=== PATIENT | female | born 1975 | race Two or more races ===

== ENCOUNTER 2016-07-17 10:57 | Outpatient (CLI) | payer OTHER | END 2016-07-17 10:58 | disposition home or self-care (01) | DX: G47.33 Obstructive sleep apnea (adult) (pediatric) (principal) ==

== ENCOUNTER 2016-08-08 07:13 | Outpatient (CLI) | payer OTHER | END 2016-08-08 07:14 | disposition home or self-care (01) | DX: R10.9 Unspecified abdominal pain (principal); R31.29 Other microscopic hematuria ==

== ENCOUNTER 2016-09-04 09:19 | Outpatient (CLI) | payer OTHER ==
--- NOTE | 2016-09-04 17:33 | Ultrasound Report ---
RETROPERITONEAL ULTRASOUND: 09/04/2016 CLINICAL HISTORY: A 41-year-old female with microscopic hematuria. TECHNIQUE: Real-time sonographic vascular imaging was performed by the reeling and tubing machine operator through the kidney s utilizing both color-flow and Doppler spectral analysis. Multiple personnel representative static images wer e saved for review. FINDINGS: The right kidney measures 11.1 cm in length. No pyelocaliceal system distention is seen. N o mass is noted. The left kidney measures 11.1 cm in length. No pyelocaliceal system distention is seen. No mass is no avani. The bladder volume on prevoid is 343.5 cubic centimeters. Bladder volume on postvoid is 8.4 cubic ciara timeters. Normal bilateral ureteral jets are seen in the bladder. IMPRESSION: NORMAL EXAMINATION. JOB #: [id number] EXT JOB #:[id number]
== END 2016-09-04 09:20 | disposition home or self-care (01) ==
LOC: DI 09:19
PROVIDERS: ATTEND Physician Assistant Medical
DX: R10.9 Unspecified abdominal pain (principal)
CPT/HCPCS: 76770

== ENCOUNTER 2016-09-18 08:16 | Outpatient (CLI) | payer OTHER ==
--- NOTE | 2016-09-18 14:10 | Ultrasound Report ---
COMPLETE ABDOMINAL ULTRASOUND: 09/18/2016 CLINICAL INDICATION: Flank pain, dyspepsia, hematuria. COMPARISON: Renal ultrasound of 09/04/2016. TECHNIQUE: Real-time scanning was performed with auto service representative static images obtained. FINDINGS: The liver measures 19 cm. Hepatic echogenicity is diffusely increased, compatible with fat ty infiltration. No focal parenchymal lesion or intrahepatic biliary dilatation is seen. The common b ile duct measures 4 mm. The gallbladder is surgically absent. The visualized pancreas is unremarkable , but portions are obscured by bowel gas. The spleen measures 7.4 cm, and appears unremarkable. The k idneys are normal, with the right measuring 11.5 cm and the left measuring 11.8 cm. The abdominal aor ta is normal in caliber. The inferior vena cava appears unremarkable. No free fluid is present. IMPRESSION: CHANGES OF CHOLECYSTECTOMY. FATTY INFILTRATION OF THE LIVER. JOB #: [id number] EXT JOB #:[id number]
== END 2016-09-18 08:17 | disposition home or self-care (01) ==
LOC: DI 08:16
PROVIDERS: ATTEND Physician Assistant Medical
DX: K76.0 Fatty (change of) liver, not elsewhere classified (principal); Z90.49 Acquired absence of other specified parts of digestive tract
CPT/HCPCS: 76700

== ENCOUNTER 2017-01-16 12:55 | Emergency (ER) | payer OTHER ==
[2017-01-16 13:04] VITALS: BP 140/91
--- NOTE | 2017-01-16 13:36 | ED Physician Documentation ---
PD HPI UPPER EXT INJURY - Stated complaint Stated Complaint: R POINTY FIN LAC - Chief complaint Chief Complaint: Ext Problem - History obtained from History obtained from: Patient - History of Present Illness Location: Other (She works in central [employer], she cut her right index finger on a pair of suture scissors today. She thinks her tetanus is up-to-date. The scissors had been pretty clean but not sterilized, they were not grossly bloody. ) Review of Systems Constitutional: reports: Reviewed and negative Cardiac: reports: Reviewed and negative Respiratory: reports: Reviewed and negative PD PAST MEDICAL HISTORY - Present Medications Home Medications: Ambulatory Orders Medication Instructions Recorded Confirmed Cetirizine [ZyrTEC] 10 mg PO DAILY 01/16/17 01/16/17 Montelukast Sodium 10 mg PO DAILY 01/16/17 01/16/17 - Allergies Allergies/Adverse Reactions: Allergies Allergy/AdvReac Type Severity Reaction Status Date / Time No Known Drug Allergies Allergy Verified 01/16/17 13:04 PD ED PE NORMAL - Vitals Vital signs reviewed: Yes - General General: Alert and oriented X 3, No acute distress - Extremities Extremities: Other (Shallow laceration on the tip of the right index finger, not through the dermis, just in the skin.) - Neuro Neuro: Alert and oriented X 3, Normal speech - Psych Psych: Normal mood, Normal affect Results - Vitals Vitals: Vital Signs - 24 hr 01/16/17 13:01 Temperature 36.7 C Heart Rate 100 Respiratory 18 Rate Blood Pressure 140/91 H O2 Saturation 100 Oxygen O2 Source Room air PD MEDICAL DECISION MAKING - ED course ED course: We discussed HIV prophylaxis, but her risk is very low and she declined. Departure - Departure Disposition: 01 Home, Self Care Clinical Impression: Employee exposure to body fluids Finger laceration Qualifiers: Encounter type: initial encounter Finger: index finger Damage to nail status: without damage Foreign body presence: without foreign body Laterality: right Qualified Code(s): S61.210A - Laceration without foreign body of right index finger without damage to nail, initial encounter Condition: Good Record reviewed to determine appropriate education?: Yes Instructions: ED Body Fluid Exp HC Worker Comments: Follow-up with your physician in 2 months and 6 months for repeat HIV and hepatitis testing. Your blood pressure was elevated today on check into the emergency department. This does not mean that you have hypertension, it is a common phenomenon to come to the emergency department and have elevated blood pressure. I recommend that she see your primary care physician within the week to have it rechecked when you are feeling better. Discharge Date/Time: 01/16/17 13:35
== END 2017-01-16 14:27 | disposition home or self-care (01) ==
LOC: ED 12:55
DX: S61.210A Laceration without foreign body of right index finger without damage to nail, initial encounter (principal); W45.8XXA Other foreign body or object entering through skin, initial encounter; Y93.89 Activity, other specified; Y99.0 Civilian activity done for income or pay; R03.0 Elevated blood-pressure reading, without diagnosis of hypertension; Z77.21 Contact with and (suspected) exposure to potentially hazardous body fluids
CPT/HCPCS: 80074; 87389; 99282; 99283

== ENCOUNTER 2017-04-12 11:53 | Outpatient (CLI) | payer OTHER ==
[2017-04-12 13:28] LABS: ALBUMIN 3.9 g/dL (3.2-5.5); ALBUMIN/GLOBULIN RATIO 1.1 (1.0-2.2); ALKALINE PHOSPHATASE 55 IU/L (42-121); ALT ALANINE AMINOTRANSFERASE 34 IU/L (10-60); AST ASPARTATE AMINOTRANSFERASE 27 IU/L (10-42); BILIRUBIN,TOTAL 0.6 mg/dL (0.2-1.0); BUN - BLOOD UREA NITROGEN 10 mg/dL (6-20); CALCIUM 8.7 mg/dL (8.5-10.3); CARBON DIOXIDE - CO2 24 mmol/L (21-32); CHLORIDE 105 mmol/L (101-111); CHOL/HDL RATIO 3.3 (<4.4); CHOLESTEROL 143 mg/dL; CREATININE 0.5 mg/dL (0.4-1.0); GFR - MDRD 135 (>89); GLUCOSE 86 mg/dL (70-100); HDL CHOLESTEROL 44 mg/dL; LDL CHOLESTEROL,CALCULATED 79 mg/dL; LDL/HDL RATIO 1.8 (<4.4); SODIUM 137 mmol/L (135-145); TOTAL PROTEIN 7.3 g/dL (6.7-8.2); VLDL CHOLESTEROL 20 mg/dL
[2017-04-12 13:29] LABS: HB2 TOTAL 13.1 g/dL; HEMOGLOBIN A1C 0.56 g/dL; HEMOGLOBIN A1C % 6.1 % (4.6-6.2)
[2017-04-12 13:30] LABS: BASOPHILS # (AUTO) 0.1 10^3/uL (0.0-0.1); BASOPHILS % (AUTO) 0.9 %; EOSINOPHILS # (AUTO) 0.3 10^3/uL (0.0-0.7); EOSINOPHILS % (AUTO) 2.6 %; HGB - HEMOGLOBIN 12.3 g/dL (12.0-16.0); LYMPHOCYTES # (AUTO) 2.7 10^3/uL (1.5-3.5); LYMPHOCYTES % (AUTO) 23.3 %; MEAN CORPUSCULAR HEMOGLOBIN 26.4 pg (27.0-31.0); MEAN PLATELET VOLUME 7.8 fL (7.9-10.8); MONOCYTES # (AUTO) 0.7 10^3/uL (0.0-1.0); MONOCYTES % (AUTO) 5.7 %; NEUTROPHILS # (AUTO) 7.7 10^3/uL (1.5-6.6); NEUTROPHILS % (AUTO) 67.5 %; PLT - PLATELET COUNT 260 10^3/uL (130-450); RED BLOOD COUNT 4.65 10^6/uL (4.20-5.40); RED CELL DISTRIBUTION WIDTH 15.2 % (12.0-15.0); WHITE BLOOD COUNT 11.4 x10^3/uL (4.8-10.8)
== END 2017-04-12 11:54 | disposition home or self-care (01) ==
LOC: LAB 11:53
PROVIDERS: ATTEND Physician Assistant Medical
DX: Z00.00 Encounter for general adult medical examination without abnormal findings (principal); E55.9 Vitamin D deficiency, unspecified
CPT/HCPCS: 80053; 80061; 82306; 83036; 84443; 85025

== ENCOUNTER 2017-11-05 08:54 | Outpatient (CLI) | payer OTHER | END 2017-11-05 08:55 | disposition home or self-care (01) | LOC: SC 08:54 | PROVIDERS: ATTEND Nurse Practitioner Family | DX: G47.33 Obstructive sleep apnea (adult) (pediatric) (principal) | CPT/HCPCS: 99212; 99214 ==

== ENCOUNTER 2018-12-30 15:45 | Outpatient (CLI) | payer BC, OTHER ==
[2018-12-30 16:25] LABS: BASOPHILS # (AUTO) 0.1 10^3/uL (0.0-0.1); BASOPHILS % (AUTO) 0.7 %; EOSINOPHILS # (AUTO) 0.4 10^3/uL (0.0-0.7); EOSINOPHILS % (AUTO) 3.2 %; HGB - HEMOGLOBIN 10.6 g/dL (12.0-16.0); LYMPHOCYTES # (AUTO) 2.9 10^3/uL (1.5-3.5); LYMPHOCYTES % (AUTO) 26.3 %; MEAN CORPUSCULAR HGB CONC 31.7 g/dL (32.0-36.0); MEAN PLATELET VOLUME 9.5 fL (7.9-10.8); MONOCYTES # (AUTO) 0.7 10^3/uL (0.0-1.0); MONOCYTES % (AUTO) 6.6 %; NEUTROPHILS # (AUTO) 6.9 10^3/uL (1.5-6.6); NEUTROPHILS % (AUTO) 62.4 %; PLT - PLATELET COUNT 245 10^3/uL (130-450); RED BLOOD COUNT 3.93 10^6/uL (4.20-5.40); RED CELL DISTRIBUTION WIDTH 13.8 % (12.0-15.0)
[2018-12-30 17:46] LABS: THYROID STIMULATING HORMONE 1.27 uIU/mL (0.34-5.60)
[2018-12-30 17:52] LABS: PROLACTIN 11.72 ng/mL
[2018-12-30 18:14] LABS: FOLLICLE STIMULATING HORMONE 7.53 mIU/mL; LUTEINIZING HORMONE 1.51 mIU/mL
[2018-12-31 06:46] LABS: ESTRADIOL 21 pg/mL
[2019-01-01 10:46] LABS: DHEA SULFATE 177 mcg/dL (19-231)
[2019-01-04 15:11] LABS: 17-HYDROXYPREGNENOLONE 38 ng/dL
== END 2018-12-30 15:46 | disposition home or self-care (01) ==
LOC: LAB 15:45
PROVIDERS: ATTEND Obstetrics & Gynecology
DX: N93.9 Abnormal uterine and vaginal bleeding, unspecified (principal)
CPT/HCPCS: 36415; 81599; 82627; 82670; 83001; 83002; 84143; 84146; 84270; 84402; 84403; 84443; 85025

== ENCOUNTER 2019-01-02 14:47 | Outpatient (CLI) | payer BC ==
--- NOTE | 2019-01-04 13:21 | Ultrasound Report ---
Reason: ABN UTERINE BLEEDING Procedure Date: 01/02/2019 Accession Number: [id number] / [id number] Procedure: US - Pelvic w/Transvaginal CPT Code: FULL RESULT: EXAM: PELVIC ULTRASOUND EXAM DATE: 01/02/2019 04:54 PM. CLINICAL HISTORY: Abnormal uterine bleeding. COMPARISON: None. TECHNIQUE: Realtime transabdominal pelvic scan performed to identify the uterus and adnexa and as an overview of other pelvic structures, followed by transvaginal scan to provide greater detail of the uterus and adnexa, with static image documentation. FINDINGS: Uterus: 10.3 x 7.2 x 7.6 cm, volume 295 cc. Anteverted position. Heterogeneous fibroid uterus is seen. Masses: Multiple uterine masses as below: 1. Lower uterine segment posteriorly, intramural, 1.0 cm. 2. Right posterior, intramural, 3.8 x 4.1 x 4.0 cm. 3. Lower uterine segment anteriorly, intramural, 0.9 cm. Endometrium: 4 mm. Normal. Cervix: Small nabothian cysts are seen, otherwise unremarkable. Right Ovary: 1.5 x 2.5 x 2.1 cm, volume 4 cc. Normal echotexture and blood flow. Left Ovary: 2.8 x 1.5 x 2.9 cm, volume 7 cc. Normal echotexture and blood flow. Free Fluid: None. Other: None. IMPRESSION: 1. Enlarged heterogeneous fibroid uterus with several intramural fibroids seen, largest measuring up to 4.1 cm. No submucosal fibroid is definitively visualized. 2. Normal thickness endometrium. No endometrial mass or vascular abnormality is identified. 3. Normal ovaries. RADIA
== END 2019-01-02 14:48 | disposition home or self-care (01) ==
LOC: DI 14:47
PROVIDERS: ATTEND Obstetrics & Gynecology
DX: D25.1 Intramural leiomyoma of uterus (principal); N93.9 Abnormal uterine and vaginal bleeding, unspecified
CPT/HCPCS: 76830; 76856

== ENCOUNTER 2019-04-22 09:56 | Outpatient (CLI) | payer BC ==
[2019-04-22 10:58] LABS: ALBUMIN 4.2 g/dL (3.2-5.5); ALBUMIN/GLOBULIN RATIO 1.1 (1.0-2.2); BILIRUBIN,TOTAL 0.7 mg/dL (0.2-1.0); CALCIUM 8.9 mg/dL (8.5-10.3); CREATININE 0.6 mg/dL (0.4-1.0); TOTAL PROTEIN 8.1 g/dL (6.7-8.2)
[2019-04-22 11:02] LABS: HB2 TOTAL 13.9 g/dL; HEMOGLOBIN A1C 0.91 g/dL; HEMOGLOBIN A1C % 8.1 % (4.6-6.2)
== END 2019-04-22 09:57 | disposition home or self-care (01) ==
LOC: LAB 09:56
PROVIDERS: ATTEND Obstetrics & Gynecology
DX: K76.0 Fatty (change of) liver, not elsewhere classified (principal); L83 Acanthosis nigricans; R73.02 Impaired glucose tolerance (oral); E66.9 Obesity, unspecified
CPT/HCPCS: 36415; 80053; 82950; 82951; 83036

== ENCOUNTER 2019-05-06 14:10 | Outpatient (CLI) | payer BC ==
[2019-05-06 14:48] LABS: BASOPHILS # (AUTO) 0.1 10^3/uL (0.0-0.1); BASOPHILS % (AUTO) 0.8 %; EOSINOPHILS # (AUTO) 0.3 10^3/uL (0.0-0.7); EOSINOPHILS % (AUTO) 3.2 %; HGB - HEMOGLOBIN 13.5 g/dL (12.0-16.0); LYMPHOCYTES # (AUTO) 2.5 10^3/uL (1.5-3.5); MEAN CORPUSCULAR HEMOGLOBIN 28.3 pg (27.0-31.0); MEAN CORPUSCULAR HGB CONC 32.8 g/dL (32.0-36.0); MEAN CORPUSCULAR VOLUME 86.4 fL (81.0-99.0); MEAN PLATELET VOLUME 9.5 fL (7.9-10.8); MONOCYTES # (AUTO) 0.7 10^3/uL (0.0-1.0); MONOCYTES % (AUTO) 6.7 %; NEUTROPHILS # (AUTO) 6.1 10^3/uL (1.5-6.6); NEUTROPHILS % (AUTO) 62.8 %; PLT - PLATELET COUNT 276 10^3/uL (130-450); RED BLOOD COUNT 4.77 10^6/uL (4.20-5.40); RED CELL DISTRIBUTION WIDTH 13.8 % (12.0-15.0); WHITE BLOOD COUNT 9.8 x10^3/uL (4.8-10.8)
[2019-05-06 14:54] LABS: BILIRUBIN,URINE NEGATIVE (NEGATIVE); GLUCOSE, URINE (UA) NEGATIVE (NEGATIVE); KETONES,URINE (UA) NEGATIVE (NEGATIVE); LEUKOCYTE ESTERASE, URINE NEGATIVE (NEGATIVE); NITRITE,URINE NEGATIVE (NEGATIVE); OCCULT BLOOD,URINE LARGE (NEGATIVE); PH,URINE 5.5 PH (5.0-7.5); PROTEIN,URINE NEGATIVE (NEGATIVE); UROBILINOGEN,URINE 0.2 (NORMAL) E.U./dL (NORMAL)
[2019-05-06 15:02] LABS: BACTERIA,URINE None Seen /HPF (None Seen); CLARITY,URINE HAZY (CLEAR); RBC,URINE TNTC /HPF (0-5); SQUAMOUS EPITHELIAL CELL,UR RARE Squamous (<= Few)
[2019-05-06 18:09] LABS: ALBUMIN/GLOBULIN RATIO 1.2 (1.0-2.2); BILIRUBIN,TOTAL 0.5 mg/dL (0.2-1.0); CALCIUM 9.3 mg/dL (8.5-10.3); CREATININE 0.6 mg/dL (0.4-1.0); TOTAL PROTEIN 7.3 g/dL (6.7-8.2)
[2019-05-06 19:08] LABS: RHEUMATOID FACTOR NEGATIVE (Negative)
[2019-05-07 13:13] LABS: HEPATITIS A IGM NON-REACTIVE (NON-REACTIVE); HEPATITIS B SURFACE ANTIGEN NON-REACTIVE (NON-REACTIVE); HEPATITIS C ANTIBODY NON-REACTIVE (NON-REACTIVE)
[2019-05-08 15:33] LABS: ALBUMIN 3.9 g/dL (3.8-4.8); ALPHA 1 GLOBULIN 0.3 g/dL (0.2-0.3); ALPHA 2 GLOBULIN 0.7 g/dL (0.5-0.9); BETA 1 GLOBULIN 0.6 g/dL (0.4-0.6); BETA 2 GLOBULIN 0.5 g/dL (0.2-0.5); GAMMA GLOBULIN 1.3 g/dL (0.8-1.7)
[2019-05-10 08:23] LABS: ANA SCREEN NEGATIVE (NEGATIVE)
== END 2019-05-06 14:11 | disposition home or self-care (01) ==
LOC: LAB 14:10
PROVIDERS: ATTEND Physician Assistant Medical
DX: L95.8 Other vasculitis limited to the skin (principal)
CPT/HCPCS: 36415; 80053; 80074; 81001; 81599; 84155; 84165; 85025; 85651; 86021; 86038; 86430

== ENCOUNTER 2019-05-16 11:09 | Outpatient (CLI) | payer BC | END 2019-05-16 11:10 | disposition home or self-care (01) | LOC: LAB 11:09 | PROVIDERS: ATTEND Physician Assistant Medical | DX: L95.8 Other vasculitis limited to the skin (principal) | CPT/HCPCS: 81599 ==

== ENCOUNTER 2019-05-20 13:43 | Outpatient (CLI) | payer BC ==
--- NOTE | 2019-05-20 15:59 | Ultrasound Report ---
Reason: LEFT BREAST AXILLA PAIN Procedure Date: 05/20/2019 Accession Number: [id number] / [id number] Procedure: US - Breast Unilateral Limited CPT Code: Final Report FULL RESULT: EXAM: Diagnostic Dig Bilat, Breast Unilateral Limited, Breast Unilateral Limited DATE: 05/20/2019 3:05 PM CLINICAL HISTORY: Clear right nipple discharge and right nipple pain. Left axillary pain. COMPARISON: Baseline mammogram. MAMMOGRAM: TECHNIQUE: (B) - Bilateral CC and MLO views were obtained. PARENCHYMAL PATTERN: (A) - The breasts demonstrate scattered fibroglandular densities bilaterally. FINDINGS: There are no suspicious masses, calcifications, skin thickening, or areas of distortion. BILATERAL BREAST ULTRASOUND: TECHNIQUE: Real time scanning by the bindery assistant with saved static images reviewed. FINDINGS: Right breast: The subareolar region is scanned. 1 small minimally dilated duct is seen. No cystic or solid mass, abnormal vascularity, or abnormal fluid collection is seen. Left breast: The axilla is scanned. Multiple normal-appearing lymph nodes are seen, the largest approximately 1.9 cm in length. No suspicious masses, fluid collection, or other axillary pathology. IMPRESSION: Negative examination. BI-RADS category 1. RECOMMENDATION: (ANNUAL) - Recommend routine annual screening mammography. Recommend clinical follow-up of right cleared nipple discharge and breast pain. BI-RADS CATEGORY: (1) - Negative. STANDARD QUALIFYING STATEMENTS: 1. This examination was not reviewed with the aid of Computer-Aided Detection (CAD). 2. A negative or benign imaging report should not preclude biopsy if clinically suspicious findings are present. 3. Dense breasts may obscure an underlying neoplasm. 4. This examination was reviewed with the aid of 3D breast imaging (tomosynthesis).
--- NOTE | 2019-05-20 15:59 | Ultrasound Report ---
Reason: RIGHT NIPPLE DISCHARGE Procedure Date: 05/20/2019 Accession Number: [id number] / [id number] Procedure: US - Breast Unilateral Limited CPT Code: Final Report FULL RESULT: EXAM: Diagnostic Dig Bilat, Breast Unilateral Limited, Breast Unilateral Limited DATE: 05/20/2019 3:05 PM CLINICAL HISTORY: Clear right nipple discharge and right nipple pain. Left axillary pain. COMPARISON: Baseline mammogram. MAMMOGRAM: TECHNIQUE: (B) - Bilateral CC and MLO views were obtained. PARENCHYMAL PATTERN: (A) - The breasts demonstrate scattered fibroglandular densities bilaterally. FINDINGS: There are no suspicious masses, calcifications, skin thickening, or areas of distortion. BILATERAL BREAST ULTRASOUND: TECHNIQUE: Real time scanning by the bull riveter with saved static images reviewed. FINDINGS: Right breast: The subareolar region is scanned. 1 small minimally dilated duct is seen. No cystic or solid mass, abnormal vascularity, or abnormal fluid collection is seen. Left breast: The axilla is scanned. Multiple normal-appearing lymph nodes are seen, the largest approximately 1.9 cm in length. No suspicious masses, fluid collection, or other axillary pathology. IMPRESSION: Negative examination. BI-RADS category 1. RECOMMENDATION: (ANNUAL) - Recommend routine annual screening mammography. Recommend clinical follow-up of right cleared nipple discharge and breast pain. BI-RADS CATEGORY: (1) - Negative. STANDARD QUALIFYING STATEMENTS: 1. This examination was not reviewed with the aid of Computer-Aided Detection (CAD). 2. A negative or benign imaging report should not preclude biopsy if clinically suspicious findings are present. 3. Dense breasts may obscure an underlying neoplasm. 4. This examination was reviewed with the aid of 3D breast imaging (tomosynthesis).
== END 2019-05-20 13:44 | disposition home or self-care (01) ==
LOC: DI 13:43
PROVIDERS: ATTEND Obstetrics & Gynecology
DX: N64.4 Mastodynia (principal)
CPT/HCPCS: 76642; 77066

== ENCOUNTER 2019-06-10 16:33 | Outpatient (CLI) | payer BC ==
--- NOTE | 2019-06-12 04:31 | Ultrasound Report ---
Reason: LOCALIZED SWELLING ON BILAT LOWER LEGS Procedure Date: 06/10/2019 Accession Number: [id number] / [id number] Procedure: US - Duplex Ext Veins Bilateral CPT Code: Final Report FULL RESULT: EXAM: BILATERAL LOWER EXTREMITY VENOUS ULTRASOUND EXAM DATE: 06/10/2019 05:59 PM. CLINICAL HISTORY: LOCALIZED SWELLING ON BILAT LOWER LEGS. COMPARISON: None. TECHNIQUE: Real-time sonographic vascular imaging was performed by the web production manager through the lower extremities utilizing both color-flow and Doppler spectral analysis. Multiple graphic art sales representative static images were saved for review. FINDINGS: Limited exam due to large body habitus. Right: Common Femoral Vein (CFV): Normal. CFV-GSV Junction: Normal. Profunda Femoral Vein (PFV): Normal. Femoral Vein (FV) Prox: Normal. Femoral Vein (FV) Mid: Normal. Femoral Vein (FV) Dist: Normal. Popliteal Vein: Normal. Posterior Tibial Veins: Not well-visualized. Peroneal Veins: Not well visualized. Left: Common Femoral Vein (CFV): Normal. CFV-GSV Junction: Normal. Profunda Femoral Vein (PFV): Normal. Femoral Vein (FV) Prox: Normal. Femoral Vein (FV) Mid: Normal. Femoral Vein (FV) Dist: Normal. Popliteal Vein: Normal. Posterior Tibial Veins: Not well visualized. Peroneal Veins: Not well visualized. Other: None. IMPRESSION: 1. Limited exam due to large body habitus. 2. Bilateral calf veins not well visualized. 3. No evidence of deep vein thrombosis in the visualized veins of the lower extremities. RADIA
== END 2019-06-10 16:34 | disposition home or self-care (01) ==
LOC: DI 16:33
PROVIDERS: ATTEND Physician Assistant Medical
DX: R22.43 Localized swelling, mass and lump, lower limb, bilateral (principal); L95.8 Other vasculitis limited to the skin
CPT/HCPCS: 81001; 93970

== ENCOUNTER 2019-06-10 16:42 | Outpatient (CLI) | payer BC ==
[2019-06-10 18:01] LABS: BILIRUBIN,URINE NEGATIVE (NEGATIVE); GLUCOSE, URINE (UA) NEGATIVE (NEGATIVE); KETONES,URINE (UA) NEGATIVE (NEGATIVE); LEUKOCYTE ESTERASE, URINE NEGATIVE (NEGATIVE); NITRITE,URINE NEGATIVE (NEGATIVE); OCCULT BLOOD,URINE SMALL (NEGATIVE); PH,URINE 5.5 PH (5.0-7.5); PROTEIN,URINE NEGATIVE (NEGATIVE); UROBILINOGEN,URINE 0.2 (NORMAL) E.U./dL (NORMAL)
[2019-06-10 18:05] LABS: CLARITY,URINE CLEAR (CLEAR)
[2019-06-10 18:28] LABS: BACTERIA,URINE None Seen /HPF (None Seen); RBC,URINE 0-5 /HPF (0-5); SQUAMOUS EPITHELIAL CELL,UR RARE Squamous (<= Few)
== END 2019-06-10 16:43 | disposition home or self-care (01) ==
LOC: LAB 16:42
PROVIDERS: ATTEND Physician Assistant Medical
DX: L95.8 Other vasculitis limited to the skin (principal)
CPT/HCPCS: 81001; 81003

== ENCOUNTER 2019-06-11 05:53 | Outpatient (CLI) | payer BC | END 2019-06-11 05:54 | disposition home or self-care (01) | LOC: LAB 05:53 | PROVIDERS: ATTEND Physician Assistant Medical | DX: L95.8 Other vasculitis limited to the skin (principal) | CPT/HCPCS: 81599; 82595 ==

== ENCOUNTER 2019-11-26 20:58 | Outpatient (CLI) | payer BC ==
--- NOTE | 2019-11-27 00:24 | XRAY Report ---
PROCEDURE: Cervical Spine 2 View INDICATIONS: NECK PAIN; Radicular C3 pattern to L ear and jaw. TECHNIQUE: 4 view of the cervical spine were acquired. COMPARISON: None. FINDINGS: Bones: No fractures or dislocations to the C6 level on lateral view with the C7 vertebra seen on swi mmer's view. The lateral masses of C1 appear intact on the odontoid view. No suspicious bony lesion s. Multilevel mild degenerative disc disease as well as uncovertebral joint and facet hypertrophy ar e seen. Soft tissues: No prevertebral soft tissue swelling. IMPRESSION: No acute osseous abnormality. Mild multilevel degenerative changes in the cervical spine Reviewed by: Kamar Jo MD on 11/27/2019 12:22 AM PDT Approved by: Kamar Jo MD on 11/27/2019 12:22 AM PDT Station ID: [id number]
== END 2019-11-26 20:59 | disposition home or self-care (01) ==
LOC: DI 20:58
PROVIDERS: ATTEND Family Medicine
DX: M50.30 Other cervical disc degeneration, unspecified cervical region (principal); M47.812 Spondylosis without myelopathy or radiculopathy, cervical region
CPT/HCPCS: 72040

== ENCOUNTER 2019-11-27 20:44 | Emergency (ER) | payer BC ==
--- NOTE | 2019-11-27 21:58 | ED Physician Documentation ---
History of Present Illness - Stated complaint Stated Complaint: NECK/HEAD PX - Chief complaint Chief Complaint: Trauma Hd/Nk - History obtained from History obtained from: Patient - Additonal information Additional information: Patient is a 44-year-old female presents with a 3-month history of worsening head, neck and face pain with recurrent stated status. She and her are also very concerned that she could have COVID 19. Patient denies fevers or rash. Denies any trauma denies any family or personal history of subarachnoid hemorrhage or cerebral aneurysm denies taking any blood thinners or antiplatelets or anticoagulants. Review of Systems Constitutional: reports: Reviewed and negative Eyes: reports: Reviewed and negative Ears: reports: Reviewed and negative Nose: reports: Rhinorrhea / runny nose, Congestion, Sinus pressure / pain Throat: reports: Reviewed and negative Cardiac: reports: Reviewed and negative Respiratory: reports: Reviewed and negative GI: reports: Reviewed and negative : reports: Reviewed and negative Skin: reports: Reviewed and negative Musculoskeletal: reports: Reviewed and negative Neurologic: reports: Headache Psychiatric: reports: Reviewed and negative Endocrine: reports: Reviewed and negative Immunocompromised: reports: Reviewed and negative PD PAST MEDICAL HISTORY - Present Medications Home Medications: Ambulatory Orders Medication Instructions Recorded Confirmed Cetirizine [ZyrTEC] 10 mg PO DAILY 01/16/17 01/16/17 Montelukast Sodium 10 mg PO DAILY 01/16/17 01/16/17 diazePAM [Valium] 5 mg PO BID PRN #7 tablet 11/27/19 - Allergies Allergies/Adverse Reactions: Allergies Allergy/AdvReac Type Severity Reaction Status Date / Time No Known Drug Allergies Allergy Verified 11/27/19 20:49 - Social History Does the pt smoke?: No Smoking Status: Never smoker PD ED PE NORMAL - Vitals Vital signs reviewed: Yes - General General: Alert and oriented X 3, No acute distress, Well developed/nourished - HEENT HEENT: Atraumatic, PERRL, EOMI, Ears normal, Moist mucous membranes, Pharynx benign, Dentition benign, Other (Funduscopic exam shows no papilledema) - Neck Neck: Supple, no meningeal sign, No bony TTP, No adenopathy, Thyroid normal, No JVD, No bruit, Other (Neck is supple there is no meningeal signs, There is some left-sided paraspinal cervical muscle spasms and left trapezius muscle spasms noted.) - Cardiac Cardiac: RRR, No murmur, No gallop, Strong equal pulses - Respiratory Respiratory: No respiratory distress, Clear bilaterally - Abdomen Abdomen: Normal bowel sounds, Soft, Non tender, Non distended, No organomegaly - Derm Derm: Warm and dry - Extremities Extremities: No deformity, No tenderness to palpate, Normal ROM s pain, No edema, No calf tenderness / cord - Neuro Neuro: Alert and oriented X 3, clay plant treater 2-12 intact, No motor deficit, No sensory deficit, Normal speech - Psych Psych: Normal mood, Normal affect Results - Vitals Vitals: Vital Signs - 24 hr 11/27/19 11/27/19 20:46 23:43 Temperature 36.7 C Heart Rate 98 96 Respiratory 18 22 Rate Blood Pressure 148/87 H 154/99 H O2 Saturation 96 97 Oxygen O2 Source Room air PD MEDICAL DECISION MAKING - ED course Complexity details: reviewed results, re-evaluated patient, considered differential (cervical spams), d/w patient, d/w family ED course: Patient reports a 3-month history of head neck pain. She denies fevers or any history of meningitis reports she is up-to-date on her immunizations no family or personal history of subarachnoid hemorrhage or cerebral aneurysm no recent trauma she does report chronic sinusitis she has been seen by her primary care provider for this as well she has a follow-up appointment on Friday. We did perform a CT of the head neck and face today which shows no acute process. She does have some paraspinal and trapezius muscle spasms will ask her to discontinue her Flexeril and start Valium as a trial and have her return the emergency department for reevaluation or follow-up with a primary care provider on Friday.No findings suggestive of subarachnoid hemorrhage or cerebral aneurysm or vertebral artery dissection or meningitis or benign intracranial hypertension. Departure - Departure Disposition: 01 Home, Self Care Clinical Impression: Cervical paraspinal muscle spasm Condition: Stable Instructions: ED Spasm Muscle Follow-Up: Camryn Cervantes ARNP [Primary Care Provider] - Tomorrow Prescriptions: diazePAM [Valium] 5 mg PO BID PRN #7 tablet PRN Reason: Spasms Comments: Follow-up with your primary care provider on Friday. Discontinue the use of Flexeril. Try taking Valium as directed. Discharge Date/Time: 11/27/19 23:44
[2019-11-27] MEDS ORDERED: diazePAM 5 MG TABLET PO STA (23:26)
[2019-11-27 23:44] VITALS: BP 154/99
--- NOTE | 2019-11-28 08:29 | CT Report ---
PROCEDURE: MAXILLOFACIAL WO INDICATIONS: severe facial pain and sinusitis for 3 months TECHNIQUE: Noncontrast 1.5 mm thick axial images acquired from the mandible through the frontal sinuses, with co anna and sagittal reformatting. For radiation dose reduction, the following was used: automated ex posure control, adjustment of mA and/or kV according to patient size. COMPARISON: Correlation is made with the accompanying head CT and cervical spine CT 11/27/2019 FINDINGS: Image quality: Excellent. Bones and teeth: Orbital kerr are intact. Sinus kerr show no fracture or deformity. Nasal bones and septum are intact. Visualized portions of the mandible demonstrate no fractures or subluxation. Zygomatic arches are intact. Pterygoid plates are intact. Visualized portions of the skull base an d auditory canals are intact. Sinuses: Paranasal sinuses are aerated, without fluid levels, mucosal thickening, or mucoceles. Mas toid air cells are aerated. Bilateral pina bullosa can be seen. The osteochondral complexes are co nstitutionally narrowed. Soft tissues: No edema, masses, or fluid collections. No enlarged lymph nodes. No soft tissue lace rations or debris. Vascular: Visualized vascular structures appear normal in the absence of contrast. Bony vascular fo ramina and canals are intact. IMPRESSION: No displaced fractures are seen. No active paranasal sinus disease is seen. Note: No significant discrepancy from the preliminary report. Reviewed by: Alphonso Christopher MD on 11/28/2019 7:28 AM JUDAH Approved by: Alphonso Christopher MD on 11/28/2019 7:28 AM NYBEA Station ID: [id number]
--- NOTE | 2019-11-28 08:30 | CT Report ---
PROCEDURE: HEAD WO INDICATIONS: headache for 3 months TECHNIQUE: Noncontrast 4.5 mm thick angled axial sections acquired from the foramen magnum to the vertex. For r adiation dose reduction, the following was used: automated exposure control, adjustment of mA and/or kV according to patient size. COMPARISON: Correlation is made with the accompanying maxillofacial CT and cervical spine CT, 020 FINDINGS: Image quality: Diagnostic CSF spaces: Basal cisterns are patent. No extra-axial fluid collections. Ventricles are normal in size and shape. Brain: No midline shift. No intracranial masses or hemorrhage. Camargo-white matter interface is norm al. Skull and face: Calvarium and visualized facial bones are intact, without suspicious lesions. Sinuses: Visualized sinuses and mastoids are clear. IMPRESSION: Normal noncontrast head CT. Note: No significant discrepancy from the preliminary report. Reviewed by: Alphonso Christopher MD on 11/28/2019 7:29 AM JUDAH Approved by: Alphonso Christopher MD on 11/28/2019 7:29 AM JUDAH Station ID: [id number]
--- NOTE | 2019-11-28 08:32 | CT Report ---
PROCEDURE: CERVICAL SPINE WO INDICATIONS: severe neck pain for 3 months worsening TECHNIQUE: Noncontrast 3 mm thick sections acquired from the skull base to the T4 level. Sagittal and coronal r eformats were then constructed. For radiation dose reduction, the following was used: automated exp osure control, adjustment of mA and/or kV according to patient size. COMPARISON: Correlation is made with the accompanying head CT and maxillofacial CT 11/27/2019. Correl ation is also made with cervical spine plain films 11/26/2019 FINDINGS: Image quality: Excellent. Bones: No fractures or dislocations. Visualized superior ribs are intact. Focal degenerative change is seen involving the C1-C2 interface anteriorly. There is mild disc space narrowing seen at C5-C6, with associated endplate irregularity and sclerosis. Partially bridging ante rior osteophytes are seen. Posteriorly directed endplate osteophytes are seen. Soft tissues: Prevertebral soft tissues are normal in thickness. No paravertebral hematomas. No ap ical pneumothoraces. IMPRESSION: No acute abnormality is seen. Focal degenerative change is seen involving the C1-C2 interface anteriorly as well as C5-C6. Note: No significant discrepancy from the preliminary report. Reviewed by: Alphonso Christopher MD on 11/28/2019 7:31 AM JUDAH Approved by: Alphonso Christopher MD on 11/28/2019 7:31 AM JUDAH Station ID: [id number]
== END 2019-11-27 23:44 | disposition home or self-care (01) ==
LOC: ED 20:44
DX: M62.838 Other muscle spasm (principal); M50.31 Other cervical disc degeneration, high cervical region; R09.89 Other specified symptoms and signs involving the circulatory and respiratory systems; Z20.828 Contact with and (suspected) exposure to other viral communicable diseases
CPT/HCPCS: 70450; 70486; 72125; 87635; 99284; A9270

== ENCOUNTER 2020-05-13 11:12 | Outpatient (CLI) | payer BC ==
[2020-05-13 13:05] LABS: BASOPHILS # (AUTO) 0.1 10^3/uL (0.0-0.1); BASOPHILS % (AUTO) 0.8 %; EOSINOPHILS # (AUTO) 0.4 10^3/uL (0.0-0.7); EOSINOPHILS % (AUTO) 3.3 %; HGB - HEMOGLOBIN 12.8 g/dL (12.0-16.0); LYMPHOCYTES # (AUTO) 2.7 10^3/uL (1.5-3.5); LYMPHOCYTES % (AUTO) 23.9 %; MEAN CORPUSCULAR HEMOGLOBIN 28.8 pg (27.0-31.0); MEAN CORPUSCULAR HGB CONC 32.5 g/dL (32.0-36.0); MEAN CORPUSCULAR VOLUME 88.7 fL (81.0-99.0); MEAN PLATELET VOLUME 9.8 fL (7.9-10.8); MONOCYTES # (AUTO) 0.5 10^3/uL (0.0-1.0); MONOCYTES % (AUTO) 4.7 %; NEUTROPHILS # (AUTO) 7.4 10^3/uL (1.5-6.6); NEUTROPHILS % (AUTO) 66.4 %; PLT - PLATELET COUNT 304 10^3/uL (130-450); RED BLOOD COUNT 4.44 10^6/uL (4.20-5.40); WHITE BLOOD COUNT 11.2 x10^3/uL (4.8-10.8)
[2020-05-13 13:33] LABS: ALBUMIN 4.3 g/dL (3.2-5.5); ALBUMIN/GLOBULIN RATIO 1.2 (1.0-2.2); ALKALINE PHOSPHATASE 52 IU/L (42-121); ALT ALANINE AMINOTRANSFERASE 24 IU/L (10-60); AST ASPARTATE AMINOTRANSFERASE 17 IU/L (10-42); BILIRUBIN,TOTAL 0.5 mg/dL (0.2-1.0); BUN - BLOOD UREA NITROGEN 14 mg/dL (6-20); CALCIUM 9.3 mg/dL (8.5-10.3); CARBON DIOXIDE - CO2 22 mmol/L (21-32); CHLORIDE 105 mmol/L (101-111); CHOLESTEROL 177 mg/dL; CREATININE 0.7 mg/dL (0.4-1.0); GLUCOSE 121 mg/dL (70-100); HDL CHOLESTEROL 44 mg/dL; LDL CHOLESTEROL,CALCULATED 105 mg/dL; LDL/HDL RATIO 2.4 (<4.4); TOTAL PROTEIN 7.8 g/dL (6.7-8.2); VLDL CHOLESTEROL 28 mg/dL
[2020-05-13 16:56] LABS: CREATININE,URINE 183.2 mg/dL; MICROALBUM/CREATININE RATIO,UR 16.4 ug/mg (<30.0)
[2020-05-13 21:59] LABS: HEMOGLOBIN A1c% 6.5 % (4.27-6.07)
== END 2020-05-13 11:13 | disposition home or self-care (01) ==
LOC: LAB.N 11:12
PROVIDERS: ATTEND Registered Nurse
DX: N93.8 Other specified abnormal uterine and vaginal bleeding (principal); E11.9 Type 2 diabetes mellitus without complications; K76.0 Fatty (change of) liver, not elsewhere classified; G47.33 Obstructive sleep apnea (adult) (pediatric)
CPT/HCPCS: 36415; 80053; 80061; 82043; 82570; 83036; 83721; 84443; 85025

== ENCOUNTER 2020-06-05 18:24 | Outpatient (CLI) | payer BC ==
--- NOTE | 2020-06-06 13:08 | Ultrasound Report ---
PROCEDURE: Pelvic w/Transvaginal INDICATIONS: DYSFUNCTIONAL UTERINE BLEEDING TECHNIQUE: Real-time scanning was performed of the pelvic organs, with image documentation. Additional endovagi nal scanning was necessary due to incomplete visualization of the adnexal and endometrial structures by transabdominal scanning. COMPARISON: Prior pelvic ultrasound 01/02/2019. FINDINGS: No pathologic free abdominal or pelvic fluid. Uterus: Uterus is normal in size at 6.9 x 9.0 x 12.0 cm., anteverted The endometrium measures 10.0 mm in combined thickness. There is a right-sided posterior intramural 5.6 x 4.4 x 5.0 cm fibroid pre viously measuring 3.8 x 4.1 x 4.0 cm. Additionally, at the low uterine segment anteriorly in the intr amural space there is a 3.6 x 2.4 x 3.3 cm fibroid, previously having measured 8 x 9 x 8 mm. Ovaries: Not seen on the right, normal on the left measuring up to 3.5 x 3.9 x 4.1 cm. There is a si mple cyst on the left measuring 3.1 x 2.7 x 2.8 cm. IMPRESSION: Nonvisualization of the right ovary, simple cyst measuring up to 3.1 cm is present within the left ov trung. 2 uterine fibroids are now found,, both of which have mildly increased in size from the prior compari son study 01/02/2019. This produces overall a mild to moderate degree of uterine enlargement. Normal e ndometrial lining thickness. Reviewed by: Edison Ward MD on 06/06/2020 1:06 PM PST Approved by: Edison Ward MD on 06/06/2020 1:06 PM PST Station ID: [id number]
== END 2020-06-05 18:25 | disposition home or self-care (01) ==
LOC: DI 18:24
PROVIDERS: ATTEND Obstetrics & Gynecology
DX: N93.8 Other specified abnormal uterine and vaginal bleeding (principal); N83.202 Unspecified ovarian cyst, left side; D25.1 Intramural leiomyoma of uterus

== ENCOUNTER 2021-02-17 09:07 | Outpatient (CLI) | payer BC ==
--- NOTE | 2021-02-17 16:14 | Ultrasound Report ---
PROCEDURE: Pelvic w/Transvaginal INDICATIONS: UTERINE FIBROIDS TECHNIQUE: Real-time scanning was performed of the pelvic organs, with image documentation. Additional endovagi nal scanning was necessary due to incomplete visualization of the adnexal and endometrial structures by transabdominal scanning. COMPARISON: 06/05/2020 FINDINGS: No pathologic free abdominal or pelvic fluid. Uterus: Uterus is enlarged in size at 13.2 x 8.6 x 8.2 cm. The endometrium measures 5 mm in combine d thickness. Nabothian cysts are incidentally noted. A nabothian cysts on the right demonstrates int ernal debris and measures up to 1.5 cm The uterine echotexture is heterogeneous, with fibroids again seen: Right posterior uterus, intramural, 5.8 x 5.6 x 5.4 centers, prior 5.6 x 4.4 x 5 cm Lower uterine segment anteriorly, intramural, 2.8 x 2.1 x 3.5 cm, prior 3.6 x 2.4 x 3.3 cm Ovaries: The right ovary measures 2.9 x 2.6 x 2.7 cm, with a calculated volume of 10.2 cc. There is a mildly complicated right ovarian cyst seen that measures up to 2.3 cm. This study is limited by body habitus and bowel gas. IMPRESSION: Numerous uterine fibroids are seen, which are similar to the prior examination. The uterus is overall mildly enlarged in size. A mildly complex right ovarian cyst is seen that measures up to 2.3 cm, which is likely within physio logic limits. If clinically appropriate, please consider a short-term follow-up ultrasound in 6 week s to ensure resolution/improvement. This study is limited by body habitus. Reviewed by: Alphonso Christopher MD on 02/17/2021 3:13 PM JUDAH Approved by: Alphonso Christopher MD on 02/17/2021 3:13 PM JUDAH Station ID: [id number]
== END 2021-02-17 09:08 | disposition home or self-care (01) ==
LOC: DI 09:07
PROVIDERS: ATTEND Registered Nurse
DX: N93.8 Other specified abnormal uterine and vaginal bleeding (principal); D25.1 Intramural leiomyoma of uterus; N85.2 Hypertrophy of uterus; N83.201 Unspecified ovarian cyst, right side; E11.9 Type 2 diabetes mellitus without complications
CPT/HCPCS: 36415; 82043; 83036

== ENCOUNTER 2021-02-17 09:10 | Outpatient (CLI) | payer BC ==
[2021-02-17 11:00] LABS: ESTIMATED AVERAGE GLUCOSE 169 mg/dL (70-100); HEMOGLOBIN A1c% 7.5 % (4.27-6.07)
== END 2021-02-17 09:11 | disposition home or self-care (01) ==
LOC: LAB 09:10
PROVIDERS: ATTEND Registered Nurse
DX: E11.9 Type 2 diabetes mellitus without complications (principal)
CPT/HCPCS: 36415; 82043; 83036

== ENCOUNTER 2021-05-11 13:09 | Outpatient (CLI) | payer BC ==
--- NOTE | 2021-05-11 17:04 | Ultrasound Report ---
PROCEDURE: Pelvic w/Transvaginal INDICATIONS: UTERINE FIBROIDS TECHNIQUE: Real-time scanning was performed of the pelvic organs, with image documentation. Additional endovagi nal scanning was necessary due to incomplete visualization of the adnexal and endometrial structures by transabdominal scanning. COMPARISON: 02/17/2021. FINDINGS: No pathologic free abdominal or pelvic fluid. Uterus: Anteverted uterus is enlarged and measures 12.6 x 8.5 x 0.3 cm in size. Heterogeneous myometr ial echotexture is seen. 5.9 x 4.7 x 5.8 cm intramural fibroid is seen in right posterior myometrium previously measures 5.8 x 5.6 x 5.4 cm in size. Previously described 2.8 x 2.1 x 3.5 cm intramural fi broid in anterior lower uterine segment is not seen on the current study. The endometrium measures 3 mm in combined thickness. No endometrial mass or fluid is seen. Nabothian cysts are noted in endocervical canal. Previously described 1.5 cm nabothian cyst with internal debr is is again seen now measures 1.6 cm in size. Ovaries: Right ovary is not visualized on this study. Left ovary measures 1.9 x 3.2 x 2.7 cm with a volume of 8.6 cc. 1.5 x 2.3 x 1.8 cm simple cyst is seen in left ovary. IMPRESSION: 1. Enlarged uterus with heterogeneous myometrial echotexture. Previously noted right posterior intram ural fibroid is essentially unchanged. Previously noted intramural fibroid in anterior lower uterine segment is not seen on this study. 2. Multiple nabothian cysts with internal debris not significantly changed from prior study. No endom etrial mass or fluid. 3. Simple cyst in left ovary as above. Right ovary is not visualized. No gross solid-appearing ovaria n lesion. Reviewed by: Murtaza Rodrigues MD on 05/11/2021 5:02 PM PST Approved by: Murtaza Rodrigues MD on 05/11/2021 5:02 PM PST Station ID: [id number]
== END 2021-05-11 13:10 | disposition home or self-care (01) ==
LOC: DI 13:09
PROVIDERS: ATTEND Registered Nurse
DX: D25.1 Intramural leiomyoma of uterus (principal); N88.8 Other specified noninflammatory disorders of cervix uteri; N83.292 Other ovarian cyst, left side

== ENCOUNTER 2021-05-17 08:00 | Outpatient (CLI) | payer BC ==
[2021-05-17 21:36] LABS: BACTERIAL VAGINOSIS DNA NEGATIVE (NEGATIVE); CANDIDA GLABRATA DNA NEGATIVE (NEGATIVE); CANDIDA GROUP DNA NEGATIVE (NEGATIVE); CANDIDA KRUSEI DNA NEGATIVE (NEGATIVE); TRICHOMONAS VAGINALIS DNA NEGATIVE (NEGATIVE)
== END 2021-05-17 23:59 ==
LOC: LAB 08:00
PROVIDERS: ATTEND Obstetrics & Gynecology
DX: N76.0 Acute vaginitis (principal)
CPT/HCPCS: 87661; 87801

== ENCOUNTER 2021-07-30 08:02 | Outpatient (CLI) | payer BC ==
[2021-07-30 12:47] LABS: THYROID STIMULATING HORMONE 1.52 uIU/mL (0.34-5.60)
[2021-07-30 13:21] LABS: ALBUMIN 4.1 g/dL (3.2-5.5); ALBUMIN/GLOBULIN RATIO 1.2 (1.0-2.2); ALKALINE PHOSPHATASE 49 IU/L (42-121); ALT ALANINE AMINOTRANSFERASE 34 IU/L (10-60); AST ASPARTATE AMINOTRANSFERASE 32 IU/L (10-42); BILIRUBIN,TOTAL 0.6 mg/dL (0.2-1.0); BUN - BLOOD UREA NITROGEN 14 mg/dL (6-20); CALCIUM 8.8 mg/dL (8.5-10.3); CARBON DIOXIDE - CO2 20 mmol/L (21-32); CHLORIDE 99 mmol/L (101-111); CHOL/HDL RATIO 3.9 (<4.4); CHOLESTEROL 166 mg/dL; CREATININE 0.6 mg/dL (0.4-1.0); CRP HIGH SENSITIVITY 4.4 mg/L; GFR - MDRD 107 (>89); GLUCOSE 176 mg/dL (70-100); HDL CHOLESTEROL 43 mg/dL; LDL CHOLESTEROL,CALCULATED 97 mg/dL; LDL/HDL RATIO 2.3 (<4.4); POTASSIUM 3.8 mmol/L (3.5-5.0); SODIUM 129 mmol/L (135-145); TOTAL PROTEIN 7.5 g/dL (6.7-8.2); TRIGLYCERIDES 128 mg/dL; VLDL CHOLESTEROL 26 mg/dL
== END 2021-07-30 08:03 | disposition home or self-care (01) ==
LOC: LAB.N 08:02
PROVIDERS: ATTEND Obstetrics & Gynecology
DX: E11.9 Type 2 diabetes mellitus without complications (principal); Z13.21 Encounter for screening for nutritional disorder; N93.8 Other specified abnormal uterine and vaginal bleeding; K76.0 Fatty (change of) liver, not elsewhere classified; Z13.220 Encounter for screening for lipoid disorders
CPT/HCPCS: 36415; 80053; 80061; 81599; 82306; 83036; 83721; 84443; 86141

== ENCOUNTER 2022-02-08 10:37 | Outpatient (CLI) | payer BC ==
[2022-02-08 14:47] LABS: BASOPHILS # (AUTO) 0.1 10^3/uL (0.0-0.1); BASOPHILS % (AUTO) 1.1 %; EOSINOPHILS # (AUTO) 0.3 10^3/uL (0.0-0.7); EOSINOPHILS % (AUTO) 3.7 %; HGB - HEMOGLOBIN 13.5 g/dL (12.0-16.0); LYMPHOCYTES # (AUTO) 2.3 10^3/uL (1.5-3.5); LYMPHOCYTES % (AUTO) 25.3 %; MEAN CORPUSCULAR HEMOGLOBIN 26.8 pg (27.0-31.0); MEAN CORPUSCULAR HGB CONC 31.4 g/dL (32.0-36.0); MEAN CORPUSCULAR VOLUME 85.3 fL (81.0-99.0); MEAN PLATELET VOLUME 10.5 fL (7.9-10.8); MONOCYTES # (AUTO) 0.6 10^3/uL (0.0-1.0); MONOCYTES % (AUTO) 6.4 %; NEUTROPHILS # (AUTO) 5.6 10^3/uL (1.5-6.6); NEUTROPHILS % (AUTO) 62.8 %; PLT - PLATELET COUNT 249 10^3/uL (130-450); RED BLOOD COUNT 5.04 10^6/uL (4.20-5.40); RED CELL DISTRIBUTION WIDTH 13.3 % (12.0-15.0); WHITE BLOOD COUNT 8.9 x10^3/uL (4.8-10.8)
[2022-02-08 15:17] LABS: CREATININE,URINE 234.1 mg/dL; MICROALBUM/CREATININE RATIO,UR 224.7 ug/mg (<30.0); MICROALBUMIN,URINE 52.6 mg/dL (0-300.0)
[2022-02-08 15:18] LABS: THYROID STIMULATING HORMONE 1.15 uIU/mL (0.34-5.60)
[2022-02-08 15:33] LABS: ALBUMIN 4.1 g/dL (3.2-5.5); ALBUMIN/GLOBULIN RATIO 1.2 (1.0-2.2); ALKALINE PHOSPHATASE 63 IU/L (42-121); ALT ALANINE AMINOTRANSFERASE 35 IU/L (10-60); AST ASPARTATE AMINOTRANSFERASE 36 IU/L (10-42); BILIRUBIN,TOTAL 0.4 mg/dL (0.2-1.0); BUN - BLOOD UREA NITROGEN 12 mg/dL (6-20); CALCIUM 9.1 mg/dL (8.5-10.3); CARBON DIOXIDE - CO2 21 mmol/L (21-32); CHLORIDE 104 mmol/L (101-111); CHOL/HDL RATIO 4.2 (<4.4); CHOLESTEROL 173 mg/dL; CREATININE 0.6 mg/dL (0.4-1.0); GFR - MDRD 107 (>89); GLUCOSE 216 mg/dL (70-100); HDL CHOLESTEROL 41 mg/dL; LDL CHOLESTEROL,CALCULATED 115 mg/dL; LDL/HDL RATIO 2.8 (<4.4); SODIUM 133 mmol/L (135-145); TOTAL PROTEIN 7.6 g/dL (6.7-8.2); TRIGLYCERIDES 84 mg/dL; VLDL CHOLESTEROL 17 mg/dL
[2022-02-08 20:42] LABS: ESTIMATED AVERAGE GLUCOSE 263 mg/dL (70-100); HEMOGLOBIN A1c% 10.8 % (4.27-6.07)
== END 2022-02-08 10:38 | disposition home or self-care (01) ==
LOC: LAB.S 10:37
PROVIDERS: ATTEND Registered Nurse
DX: E11.9 Type 2 diabetes mellitus without complications (principal); Z79.899 Other long term (current) drug therapy; Z13.220 Encounter for screening for lipoid disorders; Z13.29 Encounter for screening for other suspected endocrine disorder
CPT/HCPCS: 36415; 80053; 80061; 82043; 82570; 83036; 83721; 84443; 85025

== ENCOUNTER 2022-05-20 07:22 | Outpatient (CLI) | payer BC ==
[2022-05-20 12:20] LABS: CALCIUM 9.8 mg/dL (8.5-10.3); CREATININE 0.6 mg/dL (0.4-1.0); POTASSIUM 3.8 mmol/L (3.5-5.0)
[2022-05-20 12:34] LABS: ESTIMATED AVERAGE GLUCOSE 160 mg/dL (70-100); HEMOGLOBIN A1c% 7.2 % (4.27-6.07)
== END 2022-05-20 07:23 | disposition home or self-care (01) ==
LOC: LAB.N 07:22
PROVIDERS: ATTEND Registered Nurse
DX: E11.9 Type 2 diabetes mellitus without complications (principal)
CPT/HCPCS: 36415; 80048; 83036

== ENCOUNTER 2022-06-23 17:59 | Outpatient (CLI) | payer BC ==
--- NOTE | 2022-06-24 02:49 | XRAY Report ---
PROCEDURE: Foot 3 View LT INDICATIONS: PAIN IN LEFT FOOT TECHNIQUE: 3 views of the foot were acquired. COMPARISON: None FINDINGS: Bones: No fractures or dislocations. No suspicious bony lesions. Soft tissues: No tibiotalar joint effusion. Achilles tendon appears normal. IMPRESSION: 1. No fracture or dislocation. Reviewed by: Corye Preeira MD on 06/24/2022 2:48 AM PDT Approved by: Corey Pereira MD on 06/24/2022 2:48 AM PDT Station ID: [id number]
== END 2022-06-23 18:00 | disposition home or self-care (01) ==
LOC: DI 17:59
PROVIDERS: ATTEND Registered Nurse
DX: M79.672 Pain in left foot (principal)

== ENCOUNTER 2023-02-08 09:56 | Outpatient (CLI) | payer BC ==
[2023-02-08 11:02] LABS: ALBUMIN 4.6 g/dL (3.2-5.5); ALBUMIN/GLOBULIN RATIO 1.5 (1.0-2.2); ALKALINE PHOSPHATASE 58 IU/L (42-121); ALT ALANINE AMINOTRANSFERASE 26 IU/L (10-60); AST ASPARTATE AMINOTRANSFERASE 23 IU/L (10-42); BILIRUBIN,TOTAL 0.4 mg/dL (0.2-1.0); BUN - BLOOD UREA NITROGEN 16 mg/dL (6-20); CALCIUM 9.6 mg/dL (8.5-10.3); CARBON DIOXIDE - CO2 25 mmol/L (21-32); CHLORIDE 104 mmol/L (101-111); CHOL/HDL RATIO 3.7 (<4.4); CHOLESTEROL 176 mg/dL; CREATININE 0.6 mg/dL (0.6-1.3); GFR - MDRD 107 (>89); GLUCOSE 89 mg/dL (74-104); HDL CHOLESTEROL 48 mg/dL; LDL CHOLESTEROL,CALCULATED 104 mg/dL; LDL/HDL RATIO 2.2 (<4.4); SODIUM 138 mmol/L (135-145); TOTAL PROTEIN 7.7 g/dL (6.4-8.9); TRIGLYCERIDES 118 mg/dL (48-352); VLDL CHOLESTEROL 24 mg/dL
[2023-02-08 11:14] LABS: THYROID STIMULATING HORMONE 1.14 uIU/mL (0.34-5.60)
[2023-02-08 11:15] LABS: CREATININE,URINE 145.8 mg/dL; MICROALBUM/CREATININE RATIO,UR 15.8 ug/mg (<30.0); MICROALBUMIN,URINE 2.3 mg/dL
== END 2023-02-08 09:57 | disposition home or self-care (01) ==
LOC: LAB 09:56
PROVIDERS: ATTEND Registered Nurse
DX: E11.8 Type 2 diabetes mellitus with unspecified complications (principal); Z13.228 Encounter for screening for other metabolic disorders; Z13.220 Encounter for screening for lipoid disorders; Z13.29 Encounter for screening for other suspected endocrine disorder
CPT/HCPCS: 36415; 80053; 80061; 82043; 82570; 83721; 84443

== ENCOUNTER 2023-07-16 07:00 | Outpatient (CLI) | payer BC ==
[2023-07-16 12:07] LABS: CALCIUM 9.2 mg/dL (8.5-10.3); CREATININE 0.7 mg/dL (0.6-1.3); POTASSIUM 4.1 mmol/L (3.5-4.5)
[2023-07-16 12:44] LABS: CREATININE,URINE 150.1 mg/dL; MICROALBUM/CREATININE RATIO,UR 84.6 ug/mg (<30.0); MICROALBUMIN,URINE 12.7 mg/dL
[2023-07-16 12:51] LABS: ESTIMATED AVERAGE GLUCOSE 117 mg/dL (70-100); HEMOGLOBIN A1c% 5.7 % (4.27-6.07)
== END 2023-07-16 07:01 | disposition home or self-care (01) ==
LOC: LAB.N 07:00
PROVIDERS: ATTEND Registered Nurse
DX: E11.65 Type 2 diabetes mellitus with hyperglycemia (principal)
CPT/HCPCS: 36415; 80048; 82043; 82570; 83036

== ENCOUNTER 2023-09-18 08:19 | Outpatient (CLI) | payer BC ==
--- NOTE | 2023-09-19 08:29 | Mammography Report ---
BILATERAL DIGITAL SCREENING MAMMOGRAM 3D/2D: 09/18/2023 CLINICAL: Routine screening. Comparison is made to exams dated: 05/20/2019 ultrasound, 05/20/2019 ultrasound, and 05/20/2019 mammogram - [facility]. There are scattered areas of fibroglandular density in both breasts (category b / 25%-50% glandular t issue). No significant masses, calcifications, or other findings are seen in either breast. There has been no significant interval change. IMPRESSION: NEGATIVE There is no mammographic evidence of malignancy. A 1 year screening mammogram is recommended. Based on the Tyrer Cuzick model (a risk assessment model) the patient's lifetime risk is 11.5% and he r 10 year risk is 2.6%. According to the ACR, ACS, and NCCN guidelines, an annual breast MRI exam vilma ng with mammogram is recommended if the patient's lifetime risk is 20% or greater. This exam was interpreted at Station ID: [id number]. NOTE: For mammograms, a report in lay terms will be sent to the patient. Approximately 15% of breast malignancies will not be visualized mammographically. In the management of a palpable breast mass, a negative mammogram must not discourage biopsy of a clinically suspicious lesion. Electronically Signed By: Felix hernández/tresa:09/18/2023 09:15:35 letter sent: No_Letter ACR BI-RADS Category 1: Negative 3341F PARENCHYMAL PATTERN: (A) - The breast(s) demonstrate(s) scattered fibroglandular densities. BI-RADS CATEGORY: (1) - 1 RECOMMENDATION: (ANNUAL) - Recommend routine annual screening mammography. [id number] 1 year screening LATERALITY: (B)
== END 2023-09-18 08:20 | disposition home or self-care (01) ==
LOC: DI.N 08:19
DX: Z12.31 Encounter for screening mammogram for malignant neoplasm of breast (principal); R92.323 Mammographic fibroglandular density, bilateral breasts

== ENCOUNTER 2024-01-06 07:35 | Outpatient (CLI) | payer BC ==
[2024-01-06 12:05] LABS: BASOPHILS # (AUTO) 0.1 10^3/uL (0.0-0.1); BASOPHILS % (AUTO) 1.1 %; EOSINOPHILS # (AUTO) 0.3 10^3/uL (0.0-0.7); EOSINOPHILS % (AUTO) 4.2 %; HCT - HEMATOCRIT 38.8 % (37.0-47.0); HGB - HEMOGLOBIN 12.3 g/dL (12.0-16.0); LYMPHOCYTES # (AUTO) 2.5 10^3/uL (1.5-3.5); LYMPHOCYTES % (AUTO) 32.8 %; MEAN CORPUSCULAR HEMOGLOBIN 26.9 pg (27.0-31.0); MEAN CORPUSCULAR HGB CONC 31.7 g/dL (32.0-36.0); MEAN CORPUSCULAR VOLUME 84.9 fL (81.0-99.0); MEAN PLATELET VOLUME 10.4 fL (7.9-10.8); MONOCYTES # (AUTO) 0.6 10^3/uL (0.0-1.0); MONOCYTES % (AUTO) 7.3 %; NEUTROPHILS # (AUTO) 4.1 10^3/uL (1.5-6.6); NEUTROPHILS % (AUTO) 54.2 %; PLT - PLATELET COUNT 296 10^3/uL (130-450); RED BLOOD COUNT 4.57 10^6/uL (4.20-5.40); RED CELL DISTRIBUTION WIDTH 13.9 % (12.0-15.0); WHITE BLOOD COUNT 7.6 x10^3/uL (4.8-10.8)
[2024-01-06 12:13] LABS: ESTIMATED AVERAGE GLUCOSE 117 mg/dL (70-100); HEMOGLOBIN A1c% 5.7 % (4.27-6.07)
[2024-01-06 12:23] LABS: ALBUMIN 4.4 g/dL (3.2-5.5); ALBUMIN/GLOBULIN RATIO 1.6 (1.0-2.2); ALKALINE PHOSPHATASE 56 IU/L (42-121); ALT ALANINE AMINOTRANSFERASE 25 IU/L (10-60); AST ASPARTATE AMINOTRANSFERASE 22 IU/L (10-42); BILIRUBIN,TOTAL 0.4 mg/dL (0.2-1.0); BUN - BLOOD UREA NITROGEN 17 mg/dL (6-20); CALCIUM 9.6 mg/dL (8.5-10.3); CARBON DIOXIDE - CO2 25 mmol/L (21-32); CHLORIDE 104 mmol/L (101-111); CHOL/HDL RATIO 3.7 (<4.4); CHOLESTEROL 168 mg/dL; CREATININE 0.7 mg/dL (0.6-1.3); GFR - MDRD 89 (>89); GLUCOSE 106 mg/dL (74-104); HDL CHOLESTEROL 45 mg/dL; LDL CHOLESTEROL,CALCULATED 95 mg/dL; LDL/HDL RATIO 2.1 (<4.4); POTASSIUM 4.1 mmol/L (3.5-4.5); SODIUM 137 mmol/L (135-145); TOTAL PROTEIN 7.2 g/dL (6.4-8.9); TRIGLYCERIDES 142 mg/dL; VLDL CHOLESTEROL 28 mg/dL
[2024-01-06 12:26] LABS: THYROID STIMULATING HORMONE 1.21 uIU/mL (0.34-5.60)
[2024-01-06 12:28] LABS: CREATININE,URINE 235.5 mg/dL; MICROALBUMIN,URINE 9.9 mg/dL
== END 2024-01-06 07:36 | disposition home or self-care (01) ==
LOC: LAB.N 07:35
PROVIDERS: ATTEND Registered Nurse
DX: E11.8 Type 2 diabetes mellitus with unspecified complications (principal); Z13.228 Encounter for screening for other metabolic disorders; Z13.220 Encounter for screening for lipoid disorders; Z13.29 Encounter for screening for other suspected endocrine disorder; Z13.0 Encounter for screening for diseases of the blood and blood-forming organs and certain disorders involving the immune mechanism
CPT/HCPCS: 36415; 80053; 80061; 82043; 82570; 83036; 83721; 84443; 85025